=== PATIENT | female | born 1945 | race Asian ===

== ENCOUNTER 2019-03-20 08:32 | Emergency (ER) | payer MEDICAID ==
[~2019-03-20] VITALS: Ht 152.4 cm; Wt 79.8 kg
--- NOTE | 2019-03-20 08:35 | NUR ---
PT BIB SELF C/O COUGH AND CONGESTION FOR 5 WEEKS, NOT IN RESPIRATORY DISTRESS, HOOKED TO MONITOR, KEPT RESTED AND COMFORTABLE, WILL CONTINUE TO MONITOR.
--- NOTE | 2019-03-20 08:40 | NUR ---
SEEN AND EXAMINED BY DR. FORBES.
--- NOTE | 2019-03-20 08:48 | NUR ---
DAWIT WOLFF AT BEDSIDE FOR EKG.
--- NOTE | 2019-03-20 08:56 | NUR ---
ER PHLEB AT BEDSIDE FOR BLOOD DRAW.
[2019-03-20 09:04] LABS: BASOPHILS % (AUTO) 0.7 % (0.0-2.0); EOSINOPHILS % (AUTO) 4.5 % (0.0-6.0); HEMATOCRIT 41 % (33-45); LYMPHOCYTES # (AUTO) 2.3 /CMM (0.8-4.8); LYMPHOCYTES % (AUTO) 33.4 % (20.0-44.0); MEAN CORPUSCULAR HGB CONC 34 g/dl (31.0-36.0); MEAN CORPUSCULAR VOLUME 92 fL (82-100); MONOCYTES # (AUTO) 0.5 /CMM (0.1-1.30); MONOCYTES % (AUTO) 7.7 % (2.0-12.0); NEUTROPHILS # (AUTO) 3.7 /CMM (1.8-8.9); NEUTROPHILS % (AUTO) 53.7 % (43.0-81.0); PLATELET COUNT (AUTO) 240 /CMM (150-450); WHITE BLOOD COUNT (AUTO) 6.9 K/uL (4.3-11.0)
[2019-03-20 09:10] LABS: CALCIUM, SERUM 9.2 mg/dL (8.5-10.1); CARBON DIOXIDE 28 mmol/L (21-32); CHLORIDE 103 mmol/L (98-107); CREATININE 0.9 mg/dL (0.6-1.3); GLUCOSE 161 mg/dL (74-106); POTASSIUM 3.8 mmol/L (3.5-5.1); SODIUM SERUM 140 mmol/L (136-145); UREA NITROGEN, BLOOD 15 mg/dL (7-18)
[2019-03-20 09:16] LABS: ALANINE AMINOTRANSFERASE 22 U/L (12-78); ALBUMIN 3.5 g/dL (3.4-5.0); ALKALINE PHOSPHATASE 72 U/L (46-116); ASPARTATE AMINOTRANSFERASE 21 U/L (15-37); BILIRUBIN,DIRECT 0.1 mg/dL (0.0-0.2); BILIRUBIN,TOTAL 0.3 mg/dL (0.2-1.0); TOTAL PROTEIN, SERUM 8.6 g/dL (6.4-8.2)
[2019-03-20 10:07] VITALS: BP 119/74
--- NOTE | 2019-03-20 10:07 | NUR ---
Patient discharged to home in stable condition. Written and verbal after care instructions given. Patient verbalizes understanding of instruction.
== END 2019-03-20 10:08 | disposition home or self-care (01) ==
LOC: ER 08:36
DX: J20.9 Acute bronchitis, unspecified (principal); I10 Essential (primary) hypertension; Z88.0 Allergy status to penicillin
CPT/HCPCS: 36415; 71045-TC; 80048-TC; 80076-TC; 84484-TC; 85025-TC

== ENCOUNTER 2019-07-27 08:56 | Emergency (ER) | payer MEDICAID ==
[~2019-07-27] VITALS: Ht 154.9 cm; Wt 78.0 kg
--- NOTE | 2019-07-27 09:05 | NUR ---
NECK "LUMP" NOTED SATURDAY, PAIN TO TOUCH. DENIES SOB. PATIENT A/OX4, BREATHING EVEN AND UNLABORED, KEPT COMFORTABLE. NEEDS ATTENDED.
--- NOTE | 2019-07-27 09:10 | NUR ---
PATIENT SEEN AND EXAMINED BY DR. RITCHIE.
--- NOTE | 2019-07-27 09:22 | NUR ---
IMPOSER AT BEDSIDE.
[2019-07-27 09:31] LABS: BASOPHILS % (AUTO) 0.7 % (0.0-2.0); EOSINOPHILS % (AUTO) 3.6 % (0.0-6.0); HEMATOCRIT 44 % (33-45); HEMOGLOBIN 14.6 g/dL (11.5-14.8); LYMPHOCYTES # (AUTO) 2.6 /CMM (0.8-4.8); MEAN CORPUSCULAR HGB CONC 33 g/dl (31.0-36.0); MEAN CORPUSCULAR VOLUME 92 fL (82-100); MONOCYTES # (AUTO) 0.6 /CMM (0.1-1.30); MONOCYTES % (AUTO) 8.3 % (2.0-12.0); NEUTROPHILS # (AUTO) 3.5 /CMM (1.8-8.9); NEUTROPHILS % (AUTO) 50.4 % (43.0-81.0); PLATELET COUNT (AUTO) 234 /CMM (150-450); RED BLOOD CELL COUNT(AUTO) 4.78 MIL/uL (4.0-5.2)
[2019-07-27 09:38] LABS: CALCIUM, SERUM 9.2 mg/dL (8.5-10.1); CREATININE 0.9 mg/dL (0.6-1.3); POTASSIUM 3.8 mmol/L (3.5-5.1)
[2019-07-27 10:04] LABS: THYROID STIMULATING HORMONE 0.959 uIU/mL (0.358-3.74)
--- NOTE | 2019-07-27 11:17 | NUR ---
PATIENT STILL WAITING FOR ULTRASOUND RESULT. NO DISTRESS NOTED, AMBULATES TO RESTROOM.
--- NOTE | 2019-07-27 11:29 | NUR ---
Patient discharged to home in stable condition. Written and verbal after care instructions given. Patient verbalizes understanding of instruction.
[2019-07-27 11:31] VITALS: BP 165/79
== END 2019-07-27 11:31 | disposition home or self-care (01) ==
LOC: ER 08:58
DX: E07.9 Disorder of thyroid, unspecified (principal); I10 Essential (primary) hypertension; Z88.0 Allergy status to penicillin
CPT/HCPCS: 36415; 76536-TC; 80048-TC; 84439-TC; 84443-TC; 85025-TC

== ENCOUNTER 2021-04-06 08:56 | Emergency (ER) | payer MEDICAID, OTHER ==
[~2021-04-06] VITALS: Ht 152.4 cm; Wt 81.6 kg
--- NOTE | 2021-04-06 09:16 | NUR ---
pt ambulatory to er bed 03 c/o intermittent chest pain non radiating since last night. pt came in with minimal pain but arrive w/ high blood pressure. gowned and placed on monitor nsr on 3 leads. aaox4. otherwise stable vitals. awaiting md stevens.
--- NOTE | 2021-04-06 09:24 | NUR ---
dr tomas at bedside for eval.
[2021-04-06] MEDS ORDERED: NITROGLYCERIN PACKET 1 GM PACKET TD ONE (09:30)
[2021-04-06] MEDS ORDERED: ASPIRIN 325 MG TABLET PO ONE (09:30)
--- NOTE | 2021-04-06 09:40 | NUR ---
iv line started blood drawn and sent to lab.
--- NOTE | 2021-04-06 09:43 | NUR ---
radiology at bedside for chest xray.
[2021-04-06] MEDS ORDERED: NITROGLYCERIN PACKET 1 GM PACKET ONE (09:53)
[2021-04-06] MEDS ORDERED: ASPIRIN 325 MG TABLET ONE (09:53)
[2021-04-06 10:45] LABS: BASOPHILS % (AUTO) 0.8 % (0.0-2.0); HEMATOCRIT 44 % (33-45); HEMOGLOBIN 14.7 g/dL (11.5-14.8); LYMPHOCYTES % (AUTO) 34.6 % (20.0-44.0); MEAN CORPUSCULAR HGB CONC 34 g/dl (31.0-36.0); MEAN CORPUSCULAR VOLUME 91 fL (82-100); MONOCYTES # (AUTO) 0.4 K/uL (0.1-1.30); MONOCYTES % (AUTO) 6.1 % (2.0-12.0); NEUTROPHILS # (AUTO) 3.2 K/uL (1.8-8.9); NEUTROPHILS % (AUTO) 55.5 % (43.0-81.0); PLATELET COUNT (AUTO) 222 K/uL (150-450); RED BLOOD CELL COUNT(AUTO) 4.81 MIL/uL (4.0-5.2); WHITE BLOOD COUNT (AUTO) 5.8 K/uL (4.3-11.0)
[2021-04-06 11:02] LABS: CALCIUM, SERUM 9.4 mg/dL (8.5-10.1); CREATININE 0.8 mg/dL (0.6-1.3); POTASSIUM 4.1 mmol/L (3.5-5.1)
[2021-04-06] MEDS ORDERED: LOSA50TA39 PO (11:34)
[2021-04-06] MEDS ORDERED: ATOR20TA PO (11:34)
--- NOTE | 2021-04-06 11:35 | NUR ---
MOVE SHEET SUBMITTED AND CALLED FOR TELE BED.
--- NOTE | 2021-04-06 12:08 | NUR ---
[facility] CALLED BOOK BINDER PAGED.
--- NOTE | 2021-04-06 12:16 | NUR ---
[facility] [phone] CAP TO [facility]
--- NOTE | 2021-04-06 12:35 | NUR ---
pt going to tele [phone]
[2021-04-06] MEDS ORDERED: ASCO500C18 PO (13:09)
[2021-04-06] MEDS ORDERED: MV-M1TAB18 PO (13:09)
[2021-04-06] MEDS ORDERED: ZINC220C6 PO (13:09)
[2021-04-06] MEDS ORDERED: OMEG-166 PO (13:09)
[2021-04-06] MEDS ORDERED: CYAN-51 PO (13:09)
--- NOTE | 2021-04-06 13:16 | NUR ---
CALLED MARSHALL BAER [phone] CAP TO [facility] TO CALL US BACK.
--- NOTE | 2021-04-06 13:42 | NUR ---
Patient does not wish to proceed with medical care recommended by . Patient given information related to possible complications, up to and including , which could occur as a result of leaving the hospital at this time. Patient verbalizes understanding of risks involved due to leaving against medical advice. Patient has signed AMA form.
[2021-04-06 13:47] VITALS: BP 143/72
--- NOTE | 2021-04-06 13:47 | NUR ---
IV removed. Catheter intact and site benign. Pressure and 4x4 applied to site. No bleeding noted.
== END 2021-04-06 13:48 | disposition left against medical advice (07) ==
LOC: ER 09:17
DX: R07.9 Chest pain, unspecified (principal); I11.9 Hypertensive heart disease without heart failure; Z79.899 Other long term (current) drug therapy; Z20.822 Contact with and (suspected) exposure to COVID-19; Z53.29 Procedure and treatment not carried out because of patient's decision for other reasons
CPT/HCPCS: 36415; 71045; 80048; 83880; 84484; 85025; 87081; 87426; 93005; 99285; C9803

== ENCOUNTER 2022-12-25 11:33 | Emergency (ER) | payer BC, MEDICAID ==
[~2022-12-25] VITALS: Ht 152.4 cm; Wt 81.6 kg
[~2022-12-25 11:33] MED LIST: ASCO500C18 PO; ATOR20TA PO; CYAN-51 PO; LOSA50TA39 PO; MV-M1TAB18 PO; OMEG-166 PO; ZINC220C6 PO
[2022-12-25] MEDS ORDERED: LOSARTAN POTASSIUM 25 MG TABLET PO ONE (12:30)
[2022-12-25] MEDS ORDERED: ACETAMINOPHEN ES 500 MG TABLET PO ONE (12:30)
[2022-12-25] MEDS ORDERED: ACETAMINOPHEN ES 500 MG TABLET ONE (12:31)
[2022-12-25] MEDS ORDERED: LOSARTAN POTASSIUM 25 MG TABLET ONE (12:31)
[2022-12-25 12:55] LABS: BASOPHILS % (AUTO) 0.7 % (0.0-2.0); EOSINOPHILS # (AUTO) 0.2 K/uL (0.0-0.7); EOSINOPHILS % (AUTO) 3.5 % (0.0-6.0); HEMATOCRIT 42 % (33-45); HEMOGLOBIN 13.9 g/dL (11.5-14.8); LYMPHOCYTES # (AUTO) 2.2 K/uL (0.8-4.8); LYMPHOCYTES % (AUTO) 36.2 % (20.0-44.0); MEAN CORPUSCULAR HEMOGLOBIN 31 PG (26.0-33.0); MEAN CORPUSCULAR HGB CONC 34 g/dl (31.0-36.0); MEAN CORPUSCULAR VOLUME 92 fL (82-100); MONOCYTES # (AUTO) 0.4 K/uL (0.1-1.30); MONOCYTES % (AUTO) 6.3 % (2.0-12.0); NEUTROPHILS # (AUTO) 3.3 K/uL (1.8-8.9); NEUTROPHILS % (AUTO) 53.3 % (43.0-81.0); PLATELET COUNT (AUTO) 194 K/uL (150-450); RED CELL DISTRIBUTION WIDTH 13.6 % (11.5-15.0); WHITE BLOOD COUNT (AUTO) 6.2 K/uL (4.3-11.0)
[2022-12-25 13:04] LABS: CALCIUM, SERUM 9.4 mg/dL (8.5-10.1); CARBON DIOXIDE 29 mmol/L (21-32); CHLORIDE 104 mmol/L (98-107); CREATININE 0.9 mg/dL (0.6-1.3); GLUCOSE 96 mg/dL (74-106); POTASSIUM 3.9 mmol/L (3.5-5.1); SODIUM SERUM 140 mmol/L (136-145); UREA NITROGEN, BLOOD 15 mg/dL (7-18)
[2022-12-25 14:42] VITALS: BP 185/97; TEMP 98.4; O2SAT 97
== END 2022-12-25 14:42 | disposition home or self-care (01) ==
LOC: ER 11:38
DX: M17.11 Unilateral primary osteoarthritis, right knee (principal); M79.661 Pain in right lower leg; I10 Essential (primary) hypertension; E78.5 Hyperlipidemia, unspecified; Z88.0 Allergy status to penicillin
CPT/HCPCS: 36415; 73564-TC; 80048-TC; 85025-TC; 93971-TC

== ENCOUNTER 2024-01-20 11:31 | Emergency (ER) | payer BC, MEDICAID ==
[~2024-01-20] VITALS: Ht 152.4 cm; Wt 77.1 kg
[2024-01-20 11:51] VITALS: TEMP 98.1
[2024-01-20 15:31] VITALS: BP 135/85; O2SAT 98
== END 2024-01-20 15:20 | disposition home or self-care (01) ==
LOC: ER 11:35
DX: M25.511 Pain in right shoulder (principal); M54.2 Cervicalgia; M54.9 Dorsalgia, unspecified; I10 Essential (primary) hypertension; Z79.899 Other long term (current) drug therapy; Z88.0 Allergy status to penicillin
CPT/HCPCS: 72125-TC; 72128-TC; 72192-TC; 73030-TC

== ENCOUNTER 2024-04-08 14:27 | Emergency (ER) | payer BC, MEDICAID ==
[~2024-04-08] VITALS: Ht 152.4 cm; Wt 76.7 kg
[2024-04-08] MEDS ORDERED: ACETAMINOPHEN ES 500 MG TABLET ONE (15:03)
[2024-04-08] MEDS: ACETAMINOPHEN ES 500 MG TABLET PO ONE (15:06)
[2024-04-08 16:40] VITALS: BP 126/104; TEMP 98.6; O2SAT 97
== END 2024-04-08 16:41 | disposition home or self-care (01) ==
LOC: ER 14:52
DX: S09.90XA Unspecified injury of head, initial encounter (principal); W01.0XXA Fall on same level from slipping, tripping and stumbling without subsequent striking against object, initial encounter; Y93.89 Activity, other specified; Y92.480 Sidewalk as the place of occurrence of the external cause; Y99.8 Other external cause status
CPT/HCPCS: 70450-TC; 70486-TC

== ENCOUNTER 2024-07-24 23:22 | Inpatient (IN) | payer BC, MEDICAID ==
[~2024-07-24] VITALS: Ht 152.4 cm; Wt 75.7 kg
[2024-07-25 00:11] LABS: BASOPHILS % (AUTO) 0.6 % (0.0-2.0); EOSINOPHILS # (AUTO) 0.3 K/uL (0.0-0.7); HEMATOCRIT 42 % (33-45); HEMOGLOBIN 14.1 g/dL (11.5-14.8); LYMPHOCYTES % (AUTO) 37.2 % (20.0-44.0); MEAN CORPUSCULAR HEMOGLOBIN 30 PG (26.0-33.0); MEAN CORPUSCULAR HGB CONC 33 g/dl (31.0-36.0); MEAN CORPUSCULAR VOLUME 91 fL (82-100); MONOCYTES # (AUTO) 0.5 K/uL (0.1-1.30); MONOCYTES % (AUTO) 6.7 % (2.0-12.0); NEUTROPHILS # (AUTO) 4.2 K/uL (1.8-8.9); NEUTROPHILS % (AUTO) 51.5 % (43.0-81.0); PLATELET COUNT (AUTO) 196 K/uL (150-450); RED BLOOD CELL COUNT(AUTO) 4.64 MIL/uL (4.0-5.2); RED CELL DISTRIBUTION WIDTH 14.1 % (11.5-15.0); WHITE BLOOD COUNT (AUTO) 8.1 K/uL (4.3-11.0)
[2024-07-25] MEDS ORDERED: hydrALAZINE HCL IV 20 MG VIAL ONE ×2 (00:19→01:17)
[2024-07-25] MEDS: hydrALAZINE HCL IV 20 MG VIAL IV ONE ×2 (00:21→01:24)
[2024-07-25 00:31] LABS: CALCIUM, SERUM 9.1 mg/dL (8.5-10.1); CARBON DIOXIDE 28 mmol/L (21-32); CHLORIDE 104 mmol/L (98-107); GLUCOSE 117 mg/dL (74-106); POTASSIUM 4.2 mmol/L (3.5-5.1); SODIUM SERUM 140 mmol/L (136-145); UREA NITROGEN, BLOOD 23 mg/dL (7-18)
[2024-07-25 00:34] LABS: ALANINE AMINOTRANSFERASE 33 U/L (12-78); ALBUMIN 3.6 g/dL (3.4-5.0); ALKALINE PHOSPHATASE 95 U/L (46-116); ASPARTATE AMINOTRANSFERASE 31 U/L (15-37); BILIRUBIN,DIRECT 0.1 mg/dL (0.0-0.2); BILIRUBIN,TOTAL 0.4 mg/dL (0.2-1.0); TOTAL PROTEIN, SERUM 8.8 g/dL (6.4-8.2)
[2024-07-25 00:35] LABS: APPEARANCE,URINE CLEAR (CLEAR); BILIRUBIN,URINE NEGATIVE (NEGATIVE); BLOOD, URINE NEGATIVE Ery/uL (NEGATIVE); COLOR,URINE YELLOW (YELLOW); KETONES,URINE NEGATIVE (NEGATIVE); LEUKOCYTE ESTERASE ,URINE NEGATIVE (NEGATIVE); NITRITE, URINE NEGATIVE (NEGATIVE); PROTEIN,URINE TRACE mg/dl (NEGATIVE); UGLUCOSE NEGATIVE (NEGATIVE); UROBILINOGEN,URINE 0.2 EU/dL (0.2)
[2024-07-25 00:44] LABS: INR 0.99 (0.91-1.10); PARTIAL THROMBOPLASTIN TIME 29.3 SEC (24.3-34.3); PROTHROMBIN TIME 10.5 SECS (9.2-11.1)
[2024-07-25 00:48] LABS: ADD URINE CULTURE NO; BACTERIA,URINE Rare /HPF (None Seen); RBC,URINE 0-2 /HPF (0-2); SQUAMOUS EPITHELIAL CELL,UR 0-2 /HPF (None Seen); WBC,URINE 0-2 /HPF (0-3)
[2024-07-25] MEDS ORDERED: MAGNESIUM HYDROXIDE 30 ML UDC PO PRN (03:00)
[2024-07-25] MEDS ORDERED: MAG HYDROX/AL HYDROX/SIMETH 30 ML UDC PO PRN (03:00)
[2024-07-25] MEDS ORDERED: ONDANSETRON HCL/PF 4 MG/2 ML VIAL IVP PRN (03:00)
[2024-07-25] MEDS ORDERED: ACETAMINOPHEN 325 MG TABLET PO PRN (03:00)
[2024-07-25 04:46] VITALS: BP 198/72; TEMP 98.1; O2SAT 99
[2024-07-25] MEDS: hydrALAZINE HCL IV 20 MG VIAL IV PRN (04:53)
[2024-07-25 05:00] VITALS: BP 134/93; O2SAT 99
[2024-07-25 06:33] LABS: BASOPHILS # (AUTO) 0.1 K/uL (0.0-0.2); BASOPHILS % (AUTO) 0.5 % (0.0-2.0); EOSINOPHILS % (AUTO) 0.4 % (0.0-6.0); HEMATOCRIT 43 % (33-45); HEMOGLOBIN 13.9 g/dL (11.5-14.8); LYMPHOCYTES # (AUTO) 1.5 K/uL (0.8-4.8); LYMPHOCYTES % (AUTO) 14.6 % (20.0-44.0); MEAN CORPUSCULAR HEMOGLOBIN 30 PG (26.0-33.0); MEAN CORPUSCULAR HGB CONC 33 g/dl (31.0-36.0); MEAN CORPUSCULAR VOLUME 91 fL (82-100); MONOCYTES # (AUTO) 0.3 K/uL (0.1-1.30); MONOCYTES % (AUTO) 3.4 % (2.0-12.0); NEUTROPHILS # (AUTO) 8.2 K/uL (1.8-8.9); NEUTROPHILS % (AUTO) 81.1 % (43.0-81.0); PLATELET COUNT (AUTO) 202 K/uL (150-450); RED BLOOD CELL COUNT(AUTO) 4.71 MIL/uL (4.0-5.2); RED CELL DISTRIBUTION WIDTH 13.9 % (11.5-15.0); WHITE BLOOD COUNT (AUTO) 10.2 K/uL (4.3-11.0)
[2024-07-25 06:47] LABS: CALCIUM, SERUM 8.6 mg/dL (8.5-10.1); CARBON DIOXIDE 25 mmol/L (21-32); CHLORIDE 102 mmol/L (98-107); CREATININE 0.8 mg/dL (0.6-1.3); GLUCOSE 139 mg/dL (74-106); MAGNESIUM 1.9 mg/dL (1.8-2.4); PHOSPHORUS 3.1 mg/dL (2.5-4.9); POTASSIUM 3.6 mmol/L (3.5-5.1); SODIUM SERUM 141 mmol/L (136-145); UREA NITROGEN, BLOOD 19 mg/dL (7-18)
[2024-07-25 08:00] VITALS: BP_SYST 134; BP_SYST 169; BP_DIAS 68; BP_DIAS 93; TEMP 98; O2SAT 99
[2024-07-25] MEDS ORDERED: BETA1TAB18 PO (08:28)
[2024-07-25] MEDS ORDERED: VIT D PO (08:28)
[2024-07-25] MEDS ORDERED: LOSA25TA27 PO (08:28)
[2024-07-25] MEDS ORDERED: ZINC PO (08:28)
[2024-07-25] MEDS ORDERED: MONT10TA22 PO (08:28)
[2024-07-25] MEDS ORDERED: SUPER C PO (08:28)
[2024-07-25] MEDS ORDERED: EZET10TA32 PO (08:28)
[2024-07-25] MEDS ORDERED: MONTELUKAST SODIUM (10MG) 10 MG TABLET PO PRN (09:30)
[2024-07-25] MEDS: LOSARTAN POTASSIUM 25 MG TABLET PO SCH (09:45)
[2024-07-25] MEDS: EZETIMIBE 10 MG TABLET PO SCH (09:45)
[2024-07-25 12:00] VITALS: BP 150/69; TEMP 98.2; O2SAT 98
[2024-07-25] MEDS: AMLODIPINE BESYLATE 5 MG TABLET PO SCH (15:30)
[2024-07-25 16:00] VITALS: BP 138/60; TEMP 97.8; O2SAT 96
[2024-07-25 20:00] VITALS: BP 127/92; TEMP 98.6; O2SAT 95
[2024-07-25] MEDS: ATORVASTATIN 10 MG TABLET PO SCH (21:06)
[2024-07-26] VITALS (8 sets, daily range): BP systolic 139–160; BP diastolic 57–74; TEMP 97.5–97.7; O2SAT 94–100
[2024-07-26 06:21] LABS: BASOPHILS % (AUTO) 0.8 % (0.0-2.0); EOSINOPHILS # (AUTO) 0.3 K/uL (0.0-0.7); EOSINOPHILS % (AUTO) 4.2 % (0.0-6.0); HEMATOCRIT 43 % (33-45); HEMOGLOBIN 14.1 g/dL (11.5-14.8); LYMPHOCYTES % (AUTO) 32.3 % (20.0-44.0); MEAN CORPUSCULAR HEMOGLOBIN 30 PG (26.0-33.0); MEAN CORPUSCULAR HGB CONC 33 g/dl (31.0-36.0); MEAN CORPUSCULAR VOLUME 90 fL (82-100); MONOCYTES # (AUTO) 0.5 K/uL (0.1-1.30); MONOCYTES % (AUTO) 8.2 % (2.0-12.0); NEUTROPHILS # (AUTO) 3.4 K/uL (1.8-8.9); NEUTROPHILS % (AUTO) 54.5 % (43.0-81.0); PLATELET COUNT (AUTO) 194 K/uL (150-450); RED BLOOD CELL COUNT(AUTO) 4.73 MIL/uL (4.0-5.2); WHITE BLOOD COUNT (AUTO) 6.3 K/uL (4.3-11.0)
[2024-07-26 06:30] LABS: CALCIUM, SERUM 9.1 mg/dL (8.5-10.1); CREATININE 0.7 mg/dL (0.6-1.3); MAGNESIUM 2.5 mg/dL (1.8-2.4); PHOSPHORUS 4.1 mg/dL (2.5-4.9); POTASSIUM 3.6 mmol/L (3.5-5.1)
[2024-07-26] MEDS ORDERED: AMLO-212 PO (11:10)
[2024-07-26] MEDS ORDERED: HYDR-4075 PO (11:11)
== END 2024-07-26 18:45 | disposition home or self-care (01) | DRG 305 ==
LOC: ER 23:27 → TELE1 07-25 03:41
PROVIDERS: ADMIT Nurse Practitioner Family; ATTEND Nurse Practitioner Acute Care
DX: I16.0 Hypertensive urgency (principal); D68.59 Other primary thrombophilia; I50.32 Chronic diastolic (congestive) heart failure; I11.0 Hypertensive heart disease with heart failure; E66.01 Morbid (severe) obesity due to excess calories; Z68.32 Body mass index [BMI] 32.0-32.9, adult; R79.89 Other specified abnormal findings of blood chemistry; Z79.899 Other long term (current) drug therapy
CPT/HCPCS: 36415; 70450-TC; 71045-TC; 80048-TC; 80076-TC; 81001; 83735-TC; 84100-TC; 84443-TC; 84484-TC; 85025-TC; 85730-TC; 93307-TC; G0378; J0360

== ENCOUNTER 2024-09-16 22:29 | Inpatient (IN) | payer BC, MEDICAID ==
[~2024-09-16] VITALS: Ht 162.6 cm; Wt 80.7 kg
[~2024-09-16 22:29] MED LIST changes: +AMLO-212 PO; -ASCO500C18 PO; +BETA1TAB18 PO; -CYAN-51 PO; +EZET10TA32 PO; +HYDR-4075 PO; +LOSA25TA27 PO; -LOSA50TA39 PO; +MONT10TA22 PO; -MV-M1TAB18 PO; +SUPER C PO; +VIT D PO; +ZINC PO; -ZINC220C6 PO
[2024-09-16 23:47] LABS: PLATELET COUNT (AUTO) 184 K/uL (150-450); RED BLOOD CELL COUNT(AUTO) 4.51 MIL/uL (4.0-5.2); RED CELL DISTRIBUTION WIDTH 15.2 % (11.5-15.0); WHITE BLOOD COUNT (AUTO) 7.3 K/uL (4.3-11.0)
[2024-09-16 23:57] LABS: CALCIUM, SERUM 8.9 mg/dL (8.5-10.1); CREATININE 0.7 mg/dL (0.6-1.3); SODIUM SERUM 138 mmol/L (136-145); UREA NITROGEN, BLOOD 26 mg/dL (7-18)
[2024-09-17] VITALS (11 sets, daily range): BP systolic 132–200; BP diastolic 58–90; TEMP 97.2–97.7; O2SAT 94–98
[2024-09-17] MEDS ORDERED: CT SWABBABLE VALVE TRANS SET 1 EA INFUS.SET MC ONE
[2024-09-17] MEDS ORDERED: IOHEXOL-350 100 ML VIAL IV ONE
[2024-09-17] MEDS ORDERED: IV NS 0.9% 0 ML IV ONE
[2024-09-17] MEDS ORDERED: IV NS 0.9% 250 ML IV ONE ×2 (00:01→16:10)
[2024-09-17 00:09] LABS: ASPARTATE AMINOTRANSFERASE 29 U/L (15-37); NT-PRO BNP 58 pg/mL (0-125); TOTAL PROTEIN, SERUM 8.1 g/dL (6.4-8.2)
[2024-09-17] MEDS ORDERED: MONTELUKAST SODIUM (10MG) 10 MG TABLET PO PRN (03:30)
[2024-09-17] MEDS ORDERED: ONDANSETRON HCL/PF 4 MG/2 ML VIAL IVP PRN (03:30)
[2024-09-17] MEDS ORDERED: MAG HYDROX/AL HYDROX/SIMETH 30 ML UDC PO PRN (03:30)
[2024-09-17] MEDS ORDERED: ACETAMINOPHEN 325 MG TABLET PO PRN (03:30)
[2024-09-17] MEDS ORDERED: MAGNESIUM HYDROXIDE 30 ML UDC PO PRN (03:30)
[2024-09-17] MEDS: ASPIRIN 325 MG TABLET PO ONE (04:21)
[2024-09-17] MEDS: PANTOPRAZOLE 40 MG TABLET.DR PO SCH (07:30)
[2024-09-17 07:50] LABS: PLATELET COUNT (AUTO) 198 K/uL (150-450); RED BLOOD CELL COUNT(AUTO) 4.65 MIL/uL (4.0-5.2); RED CELL DISTRIBUTION WIDTH 14.9 % (11.5-15.0); WHITE BLOOD COUNT (AUTO) 7.1 K/uL (4.3-11.0)
[2024-09-17 08:07] LABS: INR 0.99 (0.91-1.10)
[2024-09-17 08:13] LABS: CALCIUM, SERUM 8.7 mg/dL (8.5-10.1); CREATININE 0.7 mg/dL (0.6-1.3); SODIUM SERUM 141.0 mmol/L (136-145); UREA NITROGEN, BLOOD 18.0 mg/dL (7-18)
[2024-09-17] MEDS ORDERED: ENOXAPARIN SODIUM 80 MG/0.8 ML DISP.SYRIN SQ SCH (09:00)
[2024-09-17] MEDS: EZETIMIBE 10 MG TABLET PO SCH (09:32)
[2024-09-17] MEDS: LOSARTAN POTASSIUM 25 MG TABLET PO SCH (09:32)
[2024-09-17] MEDS: MULTIVITAMIN/LUTEIN/MINERALS 1 TAB PO SCH (09:32)
[2024-09-17] MEDS: AMLODIPINE BESYLATE 5 MG TABLET PO SCH (09:32)
[2024-09-17] MEDS: HEPARIN SODIUM, PORCINE 5000 UNITS/1 ML VIAL SQ SCH (09:50)
[2024-09-17 10:28] LABS: LDL 134 mg/dL (0-99)
[2024-09-17] MEDS: hydrALAZINE HCL IV 20 MG VIAL IV PRN (11:59)
[2024-09-17] MEDS ORDERED: IOHEXOL-300 100 ML VIAL IV ONE (16:10)
[2024-09-17] MEDS: Z GUARD REMEDY 4 OZ OINT TP PRN (17:10)
[2024-09-17] MEDS: CLOTRIMAZOLE/BETAMETASONE DIPROPIONATE 15 GM TUBE TP SCH (17:10)
[2024-09-17] MEDS: ATORVASTATIN 10 MG TABLET PO SCH (21:12)
[2024-09-18] VITALS: BP 130/73; TEMP 98.1; O2SAT 95
[2024-09-18 05:00] VITALS: BP 105/73; TEMP 97.8; O2SAT 96
[2024-09-18 07:30] VITALS: BP 144/67; TEMP 98.4; O2SAT 94
[2024-09-18] MEDS ORDERED: ATOR40TA PO (13:42)
[2024-09-18] MEDS ORDERED: ASPI-1420 PO (13:42)
[2024-09-18 13:52] LABS: INR 1.03 (0.91-1.10)
[2024-09-18 16:00] VITALS: BP 154/65; TEMP 97.7; O2SAT 94
[2024-09-18 16:14] VITALS: BP 154/65
[2024-09-20 20:14] LABS: *THYROGLOBULIN <1.0 IU/mL (0.0-0.9); THYROGLOBULIN BY IMA 55.0 ng/mL (1.5-38.5)
== END 2024-09-18 18:15 | disposition home or self-care (01) | DRG 68 ==
LOC: ER 22:46 → TELE 09-17 03:19
PROVIDERS: ADMIT Nurse Practitioner Family; ATTEND Nurse Practitioner Family
DX: I66.02 Occlusion and stenosis of left middle cerebral artery (principal); I16.0 Hypertensive urgency; Z79.899 Other long term (current) drug therapy; I70.8 Atherosclerosis of other arteries; L30.4 Erythema intertrigo; I10 Essential (primary) hypertension; Z88.0 Allergy status to penicillin; E04.2 Nontoxic multinodular goiter; E78.5 Hyperlipidemia, unspecified; L25.9 Unspecified contact dermatitis, unspecified cause
CPT/HCPCS: 36415; 70496-TC; 70498-TC; 71045-TC; 71260-TC; 76536-TC; 80048-TC; 80061-TC; 80076-TC; 82378; 83880; 84439-TC; 84443-TC; 84481; 84484-TC; 85025-TC; 85610-TC; G0378; J0360; J1644; J7040; J7050; Q9967

== ENCOUNTER 2024-09-24 21:04 | Emergency (ER) | payer BC, MEDICAID ==
[~2024-09-24] VITALS: Ht 149.9 cm; Wt 76.7 kg
[~2024-09-24 21:04] MED LIST changes: +ASPI-1420 PO; -ATOR20TA PO; +ATOR40TA PO
[2024-09-24 22:36] VITALS: TEMP 98.6
[2024-09-24 22:42] LABS: PLATELET COUNT (AUTO) 198 K/uL (150-450); RED BLOOD CELL COUNT(AUTO) 4.50 MIL/uL (4.0-5.2); RED CELL DISTRIBUTION WIDTH 15.3 % (11.5-15.0); WHITE BLOOD COUNT (AUTO) 7.5 K/uL (4.3-11.0)
[2024-09-24 22:49] LABS: CALCIUM, SERUM 8.9 mg/dL (8.5-10.1); CREATININE 0.7 mg/dL (0.6-1.3); SODIUM SERUM 139 mmol/L (136-145); UREA NITROGEN, BLOOD 19 mg/dL (7-18)
[2024-09-24 22:54] LABS: INR 0.98 (0.91-1.10)
[2024-09-24 22:56] LABS: ASPARTATE AMINOTRANSFERASE 35 U/L (15-37); TOTAL PROTEIN, SERUM 8.0 g/dL (6.4-8.2)
[2024-09-24 23:31] VITALS: BP 122/57; O2SAT 96
== END 2024-09-25 01:48 | disposition home or self-care (01) ==
LOC: ER 21:12
DX: R07.9 Chest pain, unspecified (principal); R78.9 Finding of unspecified substance, not normally found in blood; I10 Essential (primary) hypertension; Z79.82 Long term (current) use of aspirin; Z79.899 Other long term (current) drug therapy; Z88.0 Allergy status to penicillin
CPT/HCPCS: 36415; 71045-TC; 80048-TC; 80076-TC; 84484-TC; 85025-TC; 85730-TC

== ENCOUNTER 2024-10-17 06:17 | Inpatient (IN) | payer BC, MEDICAID ==
[~2024-10-17] VITALS: Ht 157.5 cm; Wt 73.0 kg
[2024-10-17 06:46] LABS: PLATELET COUNT (AUTO) 183 K/uL (150-450); RED BLOOD CELL COUNT(AUTO) 4.48 MIL/uL (4.0-5.2); RED CELL DISTRIBUTION WIDTH 14.8 % (11.5-15.0); WHITE BLOOD COUNT (AUTO) 5.8 K/uL (4.3-11.0)
[2024-10-17 06:50] LABS: CALCIUM, SERUM 8.6 mg/dL (8.5-10.1); CREATININE 0.8 mg/dL (0.6-1.3); SODIUM SERUM 141 mmol/L (136-145); UREA NITROGEN, BLOOD 16 mg/dL (7-18)
[2024-10-17] MEDS ORDERED: ASPIRIN 81 MG TAB.CHEW ONE (07:37)
[2024-10-17] MEDS: ASPIRIN 81 MG TAB.CHEW PO ONE (07:46)
[2024-10-17 08:00] VITALS: BP 155/70; TEMP 97.7; O2SAT 95
[2024-10-17] MEDS ORDERED: ASPI-1169 PO (08:46)
[2024-10-17] MEDS ORDERED: HYDR-4075 PO (08:46)
[2024-10-17] MEDS ORDERED: LOSA50TA39 PO (08:46)
[2024-10-17] MEDS ORDERED: CROM10DR2 RIGHTEYE (08:46)
[2024-10-17] MEDS ORDERED: ATOR40TA PO (08:46)
[2024-10-17] MEDS ORDERED: AMLO-213 PO (08:46)
[2024-10-17 13:30] VITALS: BP 163/64; TEMP 98.1; O2SAT 96
[2024-10-17] MEDS: ENOXAPARIN SODIUM 40 MG/0.4 ML DISP.SYRIN SQ SCH (13:56)
[2024-10-17] MEDS ORDERED: MAGNESIUM HYDROXIDE 30 ML UDC PO PRN (14:00)
[2024-10-17] MEDS ORDERED: ONDANSETRON HCL/PF 4 MG/2 ML VIAL IVP PRN (14:00)
[2024-10-17] MEDS ORDERED: MAG HYDROX/AL HYDROX/SIMETH 30 ML UDC PO PRN (14:00)
[2024-10-17] MEDS ORDERED: NITROGLYCERIN 0.4 MG/TAB BOTTLE SL PRN (14:00)
[2024-10-17] MEDS ORDERED: ACETAMINOPHEN 325 MG TABLET PO PRN (14:00)
[2024-10-17] MEDS ORDERED: ZOLPIDEM TARTRATE 5 MG TABLET PO PRN (14:00)
[2024-10-17] MEDS ORDERED: Z GUARD REMEDY 4 OZ OINT TP PRN (14:00)
[2024-10-17] MEDS ORDERED: MORPHINE SULFATE INJ 2 MG/ML DISP.SYRIN IV PRN (14:00)
[2024-10-17] MEDS ORDERED: MONTELUKAST SODIUM (10MG) 10 MG TABLET PO PRN (15:30)
[2024-10-17] MEDS: LOSARTAN POTASSIUM 50 MG TABLET PO SCH (15:42)
[2024-10-17] MEDS: ASPIRIN 81 MG TAB.CHEW PO SCH (15:42)
[2024-10-17] MEDS: EZETIMIBE 10 MG TABLET PO SCH (15:42)
[2024-10-17] MEDS: AMLODIPINE BESYLATE 10 MG TABLET PO SCH (15:43)
[2024-10-17 16:00] VITALS: BP 140/64; TEMP 97.7; O2SAT 96
[2024-10-17 16:37] LABS: LDL 83 mg/dL (0-99)
[2024-10-17] MEDS: ATORVASTATIN 40 MG TABLET PO SCH (17:25)
[2024-10-17] MEDS: MULTIVITAMIN/LUTEIN/MINERALS 1 TAB PO SCH (17:25)
[2024-10-17 20:00] VITALS: BP_SYST 155; BP_DIAS 70; BP_DIAS 71; TEMP 97.7; O2SAT 95
[2024-10-18] VITALS: BP 139/64; TEMP 97.7; O2SAT 98
[2024-10-18 00:12] VITALS: BP 139/64; TEMP 97.7; O2SAT 98
[2024-10-18 04:00] VITALS: BP 131/57; TEMP 97.9; O2SAT 96; O2SAT 98
[2024-10-18 07:46] LABS: PLATELET COUNT (AUTO) 194 K/uL (150-450); RED BLOOD CELL COUNT(AUTO) 4.86 MIL/uL (4.0-5.2); RED CELL DISTRIBUTION WIDTH 14.6 % (11.5-15.0); WHITE BLOOD COUNT (AUTO) 6.1 K/uL (4.3-11.0)
[2024-10-18 07:59] LABS: CALCIUM, SERUM 9.0 mg/dL (8.5-10.1); CREATININE 0.8 mg/dL (0.6-1.3); PHOSPHORUS 3.9 mg/dL (2.5-4.9); SODIUM SERUM 142.0 mmol/L (136-145); UREA NITROGEN, BLOOD 18.0 mg/dL (7-18)
[2024-10-18] MEDS: PANTOPRAZOLE 40 MG TABLET.DR PO SCH (08:12)
[2024-10-18] MEDS ORDERED: ASPIRIN EC 81 MG TABLET.DR PO SCH (09:00)
[2024-10-18 09:36] VITALS: BP 139/75
[2024-10-18] MEDS: VALSARTAN 80 MG TABLET PO SCH (09:36)
== END 2024-10-18 13:50 | disposition home or self-care (01) | DRG 563 ==
LOC: ER 06:24 → TELE 12:36
DX: S29.011A Strain of muscle and tendon of front wall of thorax, initial encounter (principal); I10 Essential (primary) hypertension; E78.5 Hyperlipidemia, unspecified; Z88.0 Allergy status to penicillin; Z79.82 Long term (current) use of aspirin; Z79.899 Other long term (current) drug therapy; E66.9 Obesity, unspecified; X58.XXXA Exposure to other specified factors, initial encounter; Y92.9 Unspecified place or not applicable
CPT/HCPCS: 36415; 71045-TC; 80048-TC; 80061-TC; 83735-TC; 84100-TC; 84439-TC; 84443-TC; 84484-TC; 85025-TC; 87081-TC; G0378; J1650